=== PATIENT | female | born 1965 | race Caucasian/White ===

== ENCOUNTER → 2017-02-15 | Outpatient (CLI) | payer BC ==
[~2017-02-15] MED LIST: ALKA-SELTZER P1 EAC2 PO; CARBAMAZEPINE200 MG PO; ELAVIL50 MG PO; HYCODAN SYRUP480 ML PO; LEVAQUIN750 MG PO; LEXAPRO20 MG PO; LYRICA50 MG PO; PERCOCET 10/1 TABLET PO; PREDNISONE20 MG PO; PROAIR HFA8.5 GM IH; ROBITUSSIN DM118 ML PO; SYNTHROID125 MCG PO
== END | disposition home or self-care (01) ==
LOC: CDC 12:18
DX: Z01.810 Encounter for preprocedural cardiovascular examination (principal); M65.332 Trigger finger, left middle finger; R94.31 Abnormal electrocardiogram [ECG] [EKG]
CPT/HCPCS: 93000

== ENCOUNTER → 2017-07-24 | Outpatient (CLI) | payer BC | END | disposition home or self-care (01) | LOC: CDC 14:34 | DX: Z01.810 Encounter for preprocedural cardiovascular examination (principal); M25.531 Pain in right wrist; S63.521A Sprain of radiocarpal joint of right wrist, initial encounter; M65.4 Radial styloid tenosynovitis [de Quervain]; M79.641 Pain in right hand; M65.321 Trigger finger, right index finger; R94.31 Abnormal electrocardiogram [ECG] [EKG] | CPT/HCPCS: 93000 ==